=== PATIENT | female | born 1975 | race Caucasian/White ===

== ENCOUNTER 2019-09-27 08:20 | Day surgery (SDC) | payer OTHER ==
[~2019-09-27 08:20] MED LIST: ASPIR 8181 MG PO; COZAAR100 MG PO; PEPCID20 MG PO
[2019-09-27] MEDS ORDERED: POLY119PG PO (11:05)
[2019-09-27] MEDS ORDERED: PERCOCET 5-3251 EACH PO (11:05)
[2019-09-27] MEDS ORDERED: SURFAK240 M1 PO (11:05)
== END 2019-09-27 16:00 | disposition home or self-care (01) ==
LOC: CIR.AMB 08:20
DX: K80.10 Calculus of gallbladder with chronic cholecystitis without obstruction (principal); K42.9 Umbilical hernia without obstruction or gangrene